=== PATIENT | male | born 1980 | race Caucasian/White ===

== ENCOUNTER 2019-12-10 14:18 | Emergency (ER) | payer SELFPAY ==
[2019-12-10 14:24] VITALS: BP 152/124; PULSE 90; RESP 18; TEMP 36.6; O2SAT 92; BMI 33.2
--- NOTE | 2019-12-10 14:31 | XR_ITS ---
WS: [id number] FINGER LEFT TECHNIQUE: 3 views of the left Second finger CLINICAL INFORMATION: trauma; index COMPARISON: None. FINDINGS: Soft tissue laceration index finger with comminuted fractures involving the distal tuft. Soft tissue edema XR/XR finger LT min 2V [id number] IMPRESSION: Soft tissue laceration index finger with comminuted fractures involving the dis marlon tuft.
--- NOTE | 2019-12-10 14:31 | ED_ITS ---
HPI - Extremity Injury (Upper) General: Chief Complaint: Extremity Injury, Upper Stated Complaint: finger injury Time Seen by Provider: 12/10/19 14:19 Source: patient Mode of arrival: ambulatory Limitations: no limitations History of Present Illness: HPI narrative: Patient is a 39-year-old male who presents to ED today with complaints of a left index injury. Patient states the finger got caught in a chain and ripped the tip of it off . Last tetanus unknown. MD complaint: injury to: left and finger Onset (ago): minute(s) Other Extremity Injury: Left: fingers Other injuries: none Place: home Severity: moderate Relieving factors: none Associated symptoms: Reports no associated symptoms Review of Systems Skin/Breast: Reports: other (damage/trauma to L index finger) Neuro: Denies: numbness in extremities or changes in sensation [facility] ED PFSH: Social History Smoking and tobacco status: current some day smoker Physical Exam Const: COMMON NORMALS: no apparent distress, average body habitus, oriented x3, no limitations, healthy appearing, alert and well nourished Extremity: OTHER: oblique amputation to distal L index finger involving mainly the distal palmar pad; small amount of superior nail that was avulsed; no obvious bony involvement Neuro: COMMON NORMALS: oriented x3 SENSORIUM/ORIENTATION: Yes alert Skin: OTHER: see extremity assessment Course Vital Signs: Vital signs: Vital Signs Temperature 97.9 F 12/10/19 14:24 Pulse Rate 100 12/10/19 15:14 Respiratory Rate 16 12/10/19 15:14 Blood Pressure 120/104 12/10/19 15:14 Pulse Oximetry 97 12/10/19 15:14 MDM - Extremity Injury (Upper) MDM Narrative: Medical decision making narrative: Unfortunately there is nothing to repair at this time. Finger will have to heal by secondary intent. He does have distal phalanx involvement therefore we will place him on antibiotics, splint the finger, and have him follow-up with orthopedics. Imaging Data^: L index finger XR: Radiologist's impression: [address] [address] XRay Report Signed Patient: Ricardo Donovan Unit #: [id number] : [id number] Age/Sex: 39 / M ADM Date: 12/10/19 Loc: ER Room/Bed: Attending Dr: Ordering Provider/Ordering MD: Safia Petty Date of Service: 12/10/19 Procedure(s): XR finger LT min 2V 27379 Accession Number(s): [id number] Report Number: [id number] WS: [id number] FINGER LEFT TECHNIQUE: 3 views of the left Second finger CLINICAL INFORMATION: trauma; index COMPARISON: None. FINDINGS: Soft tissue laceration index finger with comminuted fractures involving the distal tuft. Soft tissue edema XR/XR finger LT min 2V 97443 IMPRESSION: Soft tissue laceration index finger with comminuted fractures involving the distal tuft. Dictated By: Lalo Canchola MD Signed By: Lalo Canchola MD Signed Date/Time: 12/10/191450 DD/ 1449 Discharge Plan Discharge Patient Disposition: Home, Self-Care Clinical Impression: Open fracture of distal phalanx of left index finger Qualifiers: Encounter type: initial encounter Fracture alignment: nondisplaced Qualified Code(s): S62.661B - Nondisplaced fracture of distal phalanx of left index finger, initial encounter for open fracture Laceration of left index finger Qualifiers: Encounter type: initial encounter Damage to nail status: with damage Foreign body presence: without foreign body Qualified Code(s): S61.311A - Laceration without foreign body of left index finger with damage to nail, initial encounter Condition: Stable Prescriptions: New hydrocodone-acetaminophen 5-325 mg tablet 1 tab PO Q6H PRN (Reason: pain) Qty: 14 RF: 0 Keflex 500 mg capsule 500 mg PO Q6H 7 Days Qty: 28 RF: 0 Discharge Orders: Discharge Order (Routine); Ordered 12/10/19 Ordered By: Safia Petty Patient Instructions: Finger Fracture (ED), Finger Amputation (ED) Activity Restrictions/Additional Instructions: Keep area clean with warm soap and water. Apply wet-to-dry dressings daily. Case management will contact you shortly to set you up with orthopedic follow- up. Begin your antibiotics immediately. Return to the emergency department for signs of infection such as redness, swelling, drainage, odor. Coding Level of Care Code ED Supervisor Coal Handling for Chg Fwd Exam Problem Focused
[2019-12-10 15:11] VITALS: RESP 12
[2019-12-10] MEDS: morphine 4 mg/mL SDV 1 mL IM (15:11)
[2019-12-10] MEDS: tetanus-diphtheria tox (adult) 0.5 mL SDV IM (15:11)
[2019-12-10 15:14] VITALS: BP 120/104; PULSE 100; RESP 16; O2SAT 97
[2019-12-10 16:31] VITALS: BP 173/99; PULSE 93; RESP 14; O2SAT 97
--- NOTE | 2019-12-11 12:03 | DCPLANNER ---
manager of investigations had message to schedule a follow up appointment for patient with ortho. manager of investigations called the ortho clinic, spoke with Ara. manager of investigations gave clinic patients information, disease case manager was told that patients information would be printed and reviewed. Clinic will call disease case manager and patient with appointment information.
--- NOTE | 2019-12-15 08:55 | DCPLANNER ---
Patient has a follow up appointment scheduled for Saturday, December 16, 2019 at 11:30 with ortho. Clinic will call patient with appointment information.
--- NOTE | 2020-01-12 07:50 | DCPLANNER ---
Patient did attend appointment scheduled for 12.16.19 with ortho.
== END 2019-12-10 16:32 | disposition home or self-care (01) ==
LOC: ER 15:24
PROVIDERS: Emergency Provider Physician Assistant
DX: S62.661B Nondisplaced fracture of distal phalanx of left index finger, initial encounter for open fracture (principal); W23.0XXA Caught, crushed, jammed, or pinched between moving objects, initial encounter; F17.210 Nicotine dependence, cigarettes, uncomplicated; Z23 Encounter for immunization
CPT/HCPCS: 12345; 73140; 90471; 90714; 96372; 99281; 99283; J2270

== ENCOUNTER → 2019-12-25 09:36 | Outpatient (BNVA) | payer SELFPAY | PROVIDERS: Visit Provider Orthopaedic Surgery | DX: S62.631A Displaced fracture of distal phalanx of left index finger, initial encounter for closed fracture (principal); X58.XXXA Exposure to other specified factors, initial encounter | CPT/HCPCS: 73140 ==

== ENCOUNTER → 2020-01-28 08:15 | Outpatient (BNVA) | payer SELFPAY | PROVIDERS: Visit Provider Orthopaedic Surgery | DX: S62.631B Displaced fracture of distal phalanx of left index finger, initial encounter for open fracture (principal); X58.XXXA Exposure to other specified factors, initial encounter | CPT/HCPCS: 73140 ==

== ENCOUNTER 2022-02-24 10:16 | Emergency (ER) | payer SELFPAY ==
[2022-02-24 10:42] VITALS: BP 155/101; PULSE 108; RESP 18; TEMP 36.9; O2SAT 96
[2022-02-24 10:45] VITALS: BP 143/90; PULSE 100; RESP 18; TEMP 37.1; O2SAT 100
--- NOTE | 2022-02-24 10:55 | ED_ITS ---
HPI - General Adult General: Chief complaint: Skin/Abscess/Foreign Body Stated complaint: welp on back of neck Time Seen by Provider: 02/24/22 10:50 History of Present Illness: Patient is a 41-year-old male with a history of previous abscesses presenting to the emergency room with complaints of posterior neck pain and swelling for the last 3 days. Patient tells me that his popped the pimple and in the back of his neck and since then, patient has had pain and swelling in the back of the neck. Patient denies any history of diabetes, IV drug use, HIV or transplant. Patient denies any fever or chills. Patient has been noted discomfort with the back of the neck. Onset:3 days ago Duration:3 days Location:home Severity:mild Associated symptoms: Deny chest pain, dyspnea, nausea, palpitations or vomiting Review of Systems Const: Denies: fever(s) or chills Eyes: Denies: change in vision ENMT: Reports: other (+small area of posterior neck swelling/redness/pain); Denies: mouth pain Card: Denies: chest pain or palpitations Resp: Denies: dyspnea or non-productive cough GI: Denies: abdominal pain, nausea, vomiting or diarrhea : Denies: dysuria Musc: Denies: extremity pain Skin/Breast: Reports: new lesions (+small area of posterior neck swelling/redness/pain) Neuro: Denies: weakness in extremities Psych: Reports: other (Normal mood) Ephraim/Lymph: Denies: easy bruising PFSH ED PFSH: Medical History (Updated 02/24/22 @ 11:00 by Dav Thao MD) Open fracture of distal phalanx of left index finger Social History Smoking and tobacco status: current some day smoker Physical Exam Const: COMMON NORMALS: alert HENMT: COMMON NORMALS: atraumatic HEAD & SCALP: atraumatic MOUTH: moist mucous membranes not abnormal Eye: COMMON NORMALS: EOMs intact bilaterally and conjunctivae normal CONJUNCTIVA: Yes conjunctivae normal Neck/C-Spine: COMMON NORMALS: full ROM and supple Resp: COMMON NORMALS: normal respiratory effort and clear to auscultation bilaterally AUSCULTATION: clear to auscultation bilaterally Cardio: COMMON NORMALS: regular rate RATE: regular rate GI: COMMON NORMALS: Soft to palpation and non-tender PALPATION: Yes Soft to palpation Extremity: COMMON NORMALS: full ROM Neuro: SENSORIUM/ORIENTATION: Yes alert MOTOR EXAM: No Abnormal motor strength present and Other motor observations present (no focal motor deficits) Psych: COMMON NORMALS: speech normal SPEECH: Yes normal speech MOOD & AFFECT: Yes euthymic mood Skin: NARRATIVE SKIN EXAM: + Left lower posterior erythema with induration measuring about 2 cm with palpable fluctuance and tenderness to palpation Procedures Abscess I/D Site: neck Side (if applicable): left Sedation/analgesia: none Local Anesthetic: lidocaine 1%, with epi and with bicarb Technique: incised with #11 blade Amount of fluid expressed (mL): 3 Irrigation: Yes Packing used?: none Course Vital Signs: Vital signs: Vital Signs Temperature 98.8 F 02/24/22 10:45 Pulse Rate 100 02/24/22 10:45 Respiratory Rate 18 02/24/22 10:45 Blood Pressure 143/90 02/24/22 10:45 Pulse Oximetry 100 02/24/22 10:45 MDM - General Adult Medical Decision Making 41-year-old male with history of prior abscesses presenting to the emergency room with left lower posterior neck swelling with induration fluctuance and erythema consistent with abscess/cellulitis. Bedside US showed mild superficial collection. Please refer to the I&D note. HR improved without any intervention. Patient reports feeling symptomatically improved after lancing abscess. Rx cephalexin BID for abscess/cellultis Disposition: Discharge. Patient counseled regarding diagnostic impression, treatment plan. Patient given ED strict return precautions to return for continuation, worsening, or development of new symptoms. Instructed to f/u w/ PCP regarding symptoms today. Patient verbalized understanding. Discharge Plan Discharge Patient Disposition: Home Clinical Impression: Abscess, Cellulitis Condition: Stable Prescriptions: New cephalexin 500 mg capsule 500 mg PO BID 7 Days Qty: 14 0RF No Action hydrocodone-acetaminophen [[place]] 5-325 mg tablet 1 tab PO Q6H PRN (Reason: pain) 7 Days Qty: 30 0RF cephalexin [Keflex] 500 mg capsule 500 mg PO QID 10 Days Qty: 40 0RF Discharge Orders: Discharge ED (Routine); Ordered 02/24/22 Ordered By: Dav Thao Discharge Diet: Advance as tolerated Discharge Activity: Increase activity as tolerated Patient Instructions: Abscess (ED), Abscess Follow-up (ED) Activity Restrictions/Additional Instructions: Please take your antibiotics as instructed. Watch out for signs of skin changes/redness, mouth redeness or swelling, nausea/vomiting, diarrhea, blood in the urine or any new or concerning complaints. Please come back to the emergency room if you notice worsening worsening swelling redness or pain or any new extremity complaints Coding Level of Care Code ED Ordnance Artificer Helper for Liz Underwood Exam Comprehensive
[2022-02-24] MEDS: sodium bicarbonate 8.4% 1 mEq/mL 50mL Syr 50 MEQ IVP (11:25)
[2022-02-24 11:32] VITALS: BP 143/90; PULSE 100; RESP 18; TEMP 37.1; O2SAT 100
== END 2022-02-24 11:33 | disposition home or self-care (01) ==
PROVIDERS: Emergency Provider Emergency Medicine
DX: L02.11 Cutaneous abscess of neck (principal)
CPT/HCPCS: 10060; 96374; 99284

== ENCOUNTER 2022-10-07 14:20 | Emergency (ER) | payer SELFPAY ==
[2022-10-07 14:25] VITALS: BP 145/80; PULSE 90; RESP 18; TEMP 36.6; O2SAT 95; BMI 36.3
--- NOTE | 2022-10-07 15:03 | W.ED.GENADLT ---
HPI - General Adult General: Chief complaint: General Medical Stated complaint: possible spider bite on right hip Time Seen by Provider: 10/07/22 14:31 History of Present Illness: Patient is a 42-year-old man that presents to the emergency department with abscess and cellulitis to the right anterior lateral iliac crest. Onset of symptoms 1 week ago. Patient has been using hydrogen peroxide daily and placing Neosporin across the area. There is purulent discharge Patient denies abdominal pain. Denies fever or chills . Associated symptoms: Deny chest pain, confusion, dyspnea, headache(s), malaise, nausea, rash, palpitations or vomiting Review of Systems General: Reports: 10 or more systems reviewed and unremarkable except in HPI and below Const: Denies: fever(s), chills, change in appetite, change in weight, fatigue or malaise Eyes: Denies: change in vision, eye discomfort, eye discharge or eye redness ENMT: Denies: throat pain, enlarged tonsils, odynophagia, hoarseness, ear or mastoid pain, ear discharge, change in hearing, tinnitus, nasal discharge, nasal congestion, post nasal drip or sinus pain Card: Denies: chest pain, palpitations, irregular heart rhythm, edema, dyspnea on exertion, orthopnea or leg pain with exertion Resp: Denies: dyspnea, productive cough, non-productive cough, wheezing, stridor or chest congestion GI: Denies: abdominal pain, nausea, vomiting, dysphagia, diarrhea, constipation, bloating, GI cramping or hematochezia : Denies: flank pain, dysuria, urinary frequency, urinary urgency, urinary hesitancy, oliguria or hematuria Musc: Denies: neck pain, back pain, extremity pain, joint pain, joint swelling, joint redness, joint warmth or muscle weakness Skin/Breast: Denies: rash, pruritus, erythema, photosensitivity or new lesions Neuro: Denies: headache(s), numbness in extremities, weakness in extremities, sensory changes, lack of coordination, difficulty walking, frequent falls, dizziness, confusion, Slurred speech present, difficulty communicating thoughts, seizure-like activity or involuntary movements Endo: Denies: polyuria, polydipsia or tired all the time Ephraim/Lymph: Denies: easy bruising or easy bleeding PFS ED PFSH: Medical History (Updated 10/07/22 @ 15:45 by SELENE Gerber) Open fracture of distal phalanx of left index finger Social History Smoking and tobacco status: current some day smoker Physical Exam Const: COMMON NORMALS: no acute distress, patient oriented x3 and alert GENERAL APPEARANCE: cooperative ORIENTATION/CONSCIOUSNESS: Yes awake, Yes oriented to person, Yes oriented to place and Yes oriented to time HENMT: COMMON NORMALS: normocephalic and atraumatic HEAD & SCALP: normocephalic and atraumatic FACE & SINUS: normal facial exam MOUTH: Normal oral and palatal mucosa present THROAT: posterior oropharynx normal Eye: COMMON NORMALS: Equal, round and reactive pupils present, EOMs intact bilaterally, conjunctivae normal and no scleral icterus GENERAL EYE: appearance normal, both eyes and all related structures ALIGNMENT: Yes alignment normal PERIORBITAL: periorbital findings normal CONJUNCTIVA: Yes conjunctivae normal PUPIL: Yes Equal, round and reactive pupils present Neck/C-Spine: COMMON NORMALS: full ROM GENERAL: Yes normal visual inspection Lymph: LYMPHATIC: no lymphadenopathy noted Chest: COMMONS NORMALS: normal inspection of the chest Breast/axilla inspection: Yes no chest deformity, asymmetry, normal contours, no nodules, masses, tenderness Resp: COMMON NORMALS: normal respiratory effort, No retractions, No use of accessory muscles and clear to auscultation bilaterally EFFORT & INSPECTION: Yes able to speak in complete sentences and Yes symmetric chest movement AUSCULTATION: clear to auscultation bilaterally Cardio: COMMON NORMALS: regular rate, regular rhythm and Peripheral pulses 2+ throughout RATE: regular rate RHYTHM: regular rhythm PERIPHERAL PULSES: Peripheral pulses 2+ throughout GI: COMMON NORMALS: Normal to inspection, nondistended, normoactive bowel sounds present, Soft to palpation, non-tender and No hepatosplenomegaly present INSPECTION: Yes normal to inspection AUSCULTATION: Yes normoactive bowel sounds PALPATION: Yes Soft to palpation and Yes No hepatosplenomegaly present RECTAL EXAM: Yes deferred Back/Pelvis: OTHER: Patient has a 3 cm abscess with area of cellulitis over the right lateral iliac crest. Purulent drainage present. Extremity: COMMON NORMALS: normal to inspection GENERAL: Yes normal exam except as noted Neuro: COMMON NORMALS: patient oriented x3 SENSORIUM/ORIENTATION: Yes alert, Yes oriented to person, Yes oriented to place and Yes oriented to time CRANIAL NERVES: Yes CN normal except as noted Psych: COMMON NORMALS: mental status grossly normal, Normal thought process present, cooperative, activity/motor behavior normal, denies homicidal ideation and denies suicidal ideation THOUGHT PROCESS: Normal thought process present Skin: COMMON NORMALS: no rashes or lesions noted, no wounds and turgor normal GENERAL SKIN EXAM: no rashes or lesions noted and turgor normal Course Vital Signs: Vital signs: Vital Signs Temperature 97.8 F 10/07/22 14:25 Pulse Rate 90 10/07/22 14:25 Respiratory Rate 18 10/07/22 14:25 Blood Pressure 145/80 10/07/22 14:25 Pulse Oximetry 95 10/07/22 14:25 Oxygen Delivery Me thod 10/07/22 14:25 MDM - General Adult Medical Decision Making Patient was evaluated in the emergency department for a abscess to the right iliac crest. Onset of symptoms approximately 1 week ago. He has been treating the wound with hydrogen peroxide and Neosporin. Patient was started here in the emergency department on Bactrim. He received 2 tablets and will go home on Bactrim twice daily x7 days. Patient has been instructed on wound care Patient has been instructed to return to the emergency department if he is not significantly better in the next 48 hours. If he becomes worse in the next 24 hours he should return for antibiotic evaluation. Discharge Plan Discharge Patient Disposition: Home Clinical Impression: Cellulitis and abscess of other specified site Condition: Stable Prescriptions: New Bactrim DS 800-160 mg tablet 1 tab PO BID 7 Days Qty: 14 0RF No Action hydrocodone-acetaminophen [[place]] 5-325 mg tablet 1 tab PO Q6H PRN (Reason: pain) 7 Days Qty: 30 0RF cephalexin [Keflex] 500 mg capsule 500 mg PO QID 10 Days Qty: 40 0RF Discharge Orders: Discharge ED (Routine); Ordered 10/07/22 Ordered By: Gifty Luna Patient Instructions: Cellulitis (ED), Pain Management Activity Restrictions/Additional Instructions: Please return to the emergency department for new concerning or worsening symptoms. If your cellulitis and wound are not significantly better in 24 to 48 hours please return promptly to primary care or urgent care or the emergency department as you may need a new antibiotic. Use only soap and water on the abscess. Pat dry You can use a dry dressing as needed No creams or ointments or lotions. Coding Level of Care Code ED Sales And Operations Trainee for Liz Underwood
[2022-10-07] MEDS: sulfamethoxazole-trimeth DS 160-800 mg Tablet 2 TAB PO (15:13)
[2022-10-07 15:51] VITALS: PULSE 84; RESP 18; O2SAT 97
== END 2022-10-07 15:52 | disposition home or self-care (01) ==
PROVIDERS: Emergency Provider Nurse Practitioner
DX: L03.115 Cellulitis of right lower limb (principal); L02.415 Cutaneous abscess of right lower limb; F17.210 Nicotine dependence, cigarettes, uncomplicated
CPT/HCPCS: 99283

== ENCOUNTER 2023-12-11 14:32 | Emergency (ER) | payer SELFPAY ==
[2023-12-11 14:45] VITALS: BP 169/94; PULSE 122; RESP 16; TEMP 36.9; O2SAT 97
[2023-12-11 16:10] LABS: Basophils # 0.1 10^3/uL (0.0-0.1); Basophils % 1.2 %; Eosinophils # 0.3 10^3/uL (0.0-0.8); Eosinophils % 2.8 %; Hematocrit 47.6 % (37-53); Lymphocytes # 2.1 10^3/uL (0.8-4.8); Lymphocytes % 20.6 %; Mean Corpuscular Hemoglobin 30.1 pg (27-33); Mean Corpuscular Volume 91.2 fl (82-101); Mean Platelet Volume 8.9 fL (7.4-10.4); Monocytes % 9.3 %; Neutrophils # 6.73 10^3/uL (1.8-7.7); Neutrophils % 65.5 %; Nucleated Red Blood Cells % 0 %; Platelet Count 240 10^3/cmm (157-399); Red Blood Count 5.22 10^6/uL (3.85-5.65); White Blood Count 10.28 10^3/uL (3.29-11.43)
[2023-12-11 16:17] LABS: Erythrocyte Sedimentation Rate 44 mm/hr (0-10)
[2023-12-11 16:28] LABS: Alanine Aminotransferase 17 U/L (0-41); Albumin Level 4.1 g/dL (3.5-5.2); Alkaline Phosphatase 121 U/L (40-130); Anion Gap 14.1 (5-19); Aspartate Amino Transferase 14 U/L (0-40); Blood Urea Nitrogen 12 mg/dL (6-20); C Reactive Protein 16.4 mg/L (0.0-4.9); Calcium 8.4 mg/dL (8.5-10.5); Carbon Dioxide 27 mmol/L (22-29); Chloride 103 mmol/L (98-107); Creatinine Clr Calc Pharmacy 105.2852; Globulin 3.5 g/dL (1.3-4.6); Glomerular Filtration Rate 73.1 mL/min (90-130); Glucose 120 mg/dL (65-115); Osmolality Calculated 291 mOsm/kg (285-295); Potassium 4.1 mmol/L (3.5-5.1); Sodium 140 mmol/L (136-145); Total Bilirubin 0.3 mg/dL (0.15-1.2); Total Protein 7.6 g/dL (6.6-8.7)
[2023-12-11 16:29] LABS: Lactic Sepsis W/Reflex 1.9 mmol/L (0.5-2.2)
--- NOTE | 2023-12-11 18:17 | ED_ITS ---
HPI - Skin/Abscess/Foreign Bdy 2 General: Chief complaint: Skin/Abscess/Foreign Body Stated complaint: right hand pain, swelling, pus Time Seen by Provider: 12/11/23 18:17 History of Present Illness: 43-year-old male patient comes in today with crusted lesions to the dorsal right hand with no significant swelling. Patient also has multiple lesions to his forearm back hip. All lesions are various stages of crusting and draining and ulceration. Patient appears nontoxic. Patient appears in no acute distress. Patient denies any significant pain or discomfort. Patient does have a history of staph infection. Review of Systems 2 General: Reports: 10 or more systems reviewed and unremarkable except in HPI and below PFSH ED 2 PFSH: Medical History (Updated 12/11/23 @ 18:20 by CHELSIE Lofton) Open fracture of distal phalanx of left index finger Social History Smoking and tobacco/nicotine status: current some day tobacco/nicotine user Physical Exam 2 Const: COMMON NORMALS: alert HENMT: COMMON NORMALS: normocephalic HEAD & SCALP: normocephalic Neck/C-Spine: COMMON NORMALS: full ROM Resp: COMMON NORMALS: normal respiratory effort Cardio: COMMON NORMALS: regular rate RATE: regular rate Back/Pelvis: COMMON NORMALS: thoracic and lumbar spine normal to inspection Extremity: COMMON NORMALS: full ROM Neuro: SENSORIUM/ORIENTATION: Yes alert Skin: LESIONS: lesion noted (Multiple crusted lesions) Course 2 Vital Signs: Vital signs: Vital Signs Temperature 98.5 F 12/11/23 14:45 Pulse Rate 122 H 12/11/23 14:45 Respiratory Rate 16 12/11/23 14:45 Blood Pressure 169/94 12/11/23 14:45 Pulse Oximetry 97 12/11/23 14:45 Oxygen Delivery Me thod Room Air 12/11/23 14:45 MDM - Skin/Abscess/Foreign Bdy Medicial Decision Making 43-year-old male patient with multiple crusted lesions with the first 1 starting on his right hand and now has spread to various parts of his body. Lesions have some crusting with some stages of ulceration. Patient appears nontoxic. Patient appears no acute distress. Differential diagnosis includes but not limited to mycosis, impetigo, abscess, folliculitis, picking disorder. Reviewed exam with patient with recommendations for treatment and follow-up. Laboratory values were unremarkable except for some mild elevation in sed rate and CRP. White blood cell count was normal. No signs of sepsis or severe illness is noted. No signs of tenosynovitis in the hands is noted. Most of the lesions appear superficial involving only the dermis. Recommended mupirocin and Bactrim. Patient reported understanding of care plan need for follow-up or return to the ER. Lab Data 12/11/23 16:00 12/11/23 16:00 Laboratory Results WBC 10.28 10^3/uL (3.29-11.43) 12/11/23 16:00 RBC 5.22 10^6/uL (3.85-5.65) 12/11/23 16:00 Hgb 15.70 g/dL (11.27-16.99) 12/11/23 16:00 Hct 47.6 % (37-53) 12/11/23 16:00 MCV 91.2 fl (82-101) 12/11/23 16:00 MCH 30.1 pg (27-33) 12/11/23 16:00 MCHC 33.0 g/dL (30-55) 12/11/23 16:00 RDW 13.0 % (12.1-15.1) 12/11/23 16:00 Plt Count 240 10^3/cmm (157-399) 12/11/23 16:00 MPV 8.9 fL (7.4-10.4) 12/11/23 16:00 Neut % (Auto) 65.5 % 12/11/23 16:00 Lymph % (Auto) 20.6 % 12/11/23 16:00 [facility] % (Auto) 9.3 % 12/11/23 16:00 Eos % (Auto) 2.8 % 12/11/23 16:00 Baso % (Auto) 1.2 % 12/11/23 16:00 Neut # (Auto) 6.73 10^3/uL (1.8-7.7) 12/11/23 16:00 Lymph # (Auto) 2.1 10^3/uL (0.8-4.8) 12/11/23 16:00 [facility] # (Auto) 1.0 10^3/uL (0.2-0.9) H 12/11/23 16:00 Eos # (Auto) 0.3 10^3/uL (0.0-0.8) 12/11/23 16:00 Baso # (Auto) 0.1 10^3/uL (0.0-0.1) 12/11/23 16:00 Nucleated RBC % (auto) 0 % 12/11/23 16:00 Nucleated RBCs # 0.0 /100WBC 12/11/23 16:00 ESR 44 mm/hr (0-10) H 12/11/23 16:00 Sodium 140 mmol/L (136-145) 12/11/23 16:00 Potassium 4.1 mmol/L (3.5-5.1) 12/11/23 16:00 Chloride 103 mmol/L (98-107) 12/11/23 16:00 Carbon Dioxide 27 mmol/L (22-29) 12/11/23 16:00 Anion Gap 14.1 (5-19) 12/11/23 16:00 BUN 12 mg/dL (6-20) 12/11/23 16:00 Creatinine 1.1 mg/dL (0.7-1.2) 12/11/23 16:00 GFR Calculation 73.1 mL/min (90-130) L 12/11/23 16:00 Glucose 120 mg/dL (65-115) H 12/11/23 16:00 Calculated Osmolality 291 mOsm/kg (285-295) 12/11/23 16:00 Lactic Acid 1.9 mmol/L (0.5-2.2) 12/11/23 16:00 Calcium 8.4 mg/dL (8.5-10.5) L 12/11/23 16:00 Total Bilirubin 0.3 mg/dL (0.15-1.2) 12/11/23 16:00 AST 14 U/L (0-40) 12/11/23 16:00 ALT 17 U/L (0-41) 12/11/23 16:00 Alkaline Phosphatase 121 U/L (40-130) 12/11/23 16:00 C-Reactive Protein 16.4 mg/L (0.0-4.9) H 12/11/23 16:00 Total Protein 7.6 g/dL (6.6-8.7) 12/11/23 16:00 Albumin 4.1 g/dL (3.5-5.2) 12/11/23 16:00 Globulin 3.5 g/dL (1.3-4.6) 12/11/23 16:00 No radiology studies performed this visit Discharge Plan Discharge Patient Disposition: Home Clinical Impression: Folliculitis Condition: Stable Prescriptions: New sulfamethoxazole-trimethoprim 800-160 mg tablet 1 tab PO BID 10 Days Qty: 20 0RF mupirocin 2 % ointment 1 applic topical BID Qty: 22 0RF Discontinued hydrocodone-acetaminophen [[place]] 5-325 mg tablet 1 tab PO Q6H PRN (Reason: pain) 7 Days Qty: 30 0RF cephalexin [Keflex] 500 mg capsule 500 mg PO QID 10 Days Qty: 40 0RF Discharge Orders: Discharge ED (Routine); Ordered 12/11/23 Ordered By: Kam Feng Discharge Diet: Usual diet Discharge Activity: Increase activity as tolerated Patient Instructions: Impetigo (ED) Activity Restrictions/Additional Instructions: Use ointment topically twice a day to each lesion or any new lesions. Take sulfamethoxazole?trimethoprim 1 tablet twice a day for the next 10 days. Drink plenty of water and fluids. Do not share towels as this is contagious. Follow- up with primary care for further instruction. Coding Level of Care Code ED Complaint Clerk for Liz Underwood
[2023-12-11] MEDS: sulfamethoxazole-trimeth DS 160-800 mg Tablet 1 TAB PO (18:30)
[2023-12-11] MEDS: mupirocin oint 22 gm 1 APPLIC TOPICAL (18:31)
[2023-12-11 18:35] VITALS: BP 181/109; PULSE 113; O2SAT 96
== END 2023-12-11 18:36 | disposition home or self-care (01) ==
PROVIDERS: Emergency Provider Nurse Practitioner Family
DX: L73.9 Follicular disorder, unspecified (principal); Z72.0 Tobacco use
CPT/HCPCS: 36415; 80053; 83605; 85025; 85651; 86140; 87040; 99283